=== PATIENT | female | born 1935 | race Caucasian/White ===

== ENCOUNTER 2024-04-02 23:13 | Observation (INO) ==
[2024-04-02] MEDS: methylPREDNISolone 125 MG/2 ML VIAL IV STA (23:30)
[2024-04-02] MEDS: EPINEPHrine ADULT AUTO-INJECT 0.3 MG SYR IM ONE (23:37)
[2024-04-02] MEDS: diphenhydrAMINE 50 MG/ML VIAL ONE (23:38)
[2024-04-02] MEDS: EPINEPHrine INJ 1 MG/ML AMP IM STA (23:38)
[2024-04-02] MEDS: RACEPINEPHRINE 2.25% NEBU SOLN 0.5 ML VIAL NEB STA (23:39)
[2024-04-02] MEDS: methylPREDNISolone 125 MG/2 ML VIAL ONE (23:39)
[2024-04-02] MEDS: FAMOTIDINE 20MG IV PUSH 20 MG/5 ML SYR IV STA (23:40)
[2024-04-02] MEDS: FAMOTIDINE 20MG/5ML IV PUSH IV ONE (23:40)
[2024-04-02 23:57] LABS: Basophils # (auto) 0.05 K/uL (0.00-0.20); Basophils % (auto) 0.7 %; Eosinophils % (auto) 2.7 %; Hemoglobin 13.8 g/dl (12.0-16.0); Immature Granulocytes # (auto) 0.02 K/uL (0.01-0.20); Immature Granulocytes % (auto) 0.3 %; Lymphocytes # (auto) 3.48 K/uL (1.20-3.40); Lymphocytes % (auto) 46.3 %; Mean Corpuscular Hgb Conc 32.9 g/dL (32.0-36.0); Mean Corpuscular Volume 91.3 fL (80.0-100.0); Mean Platelet Volume 9.3 fL (9.4-12.4); Monocytes # (auto) 0.51 K/uL (0.11-0.59); Monocytes % (auto) 6.8 %; Neutrophils # (auto) 3.26 K/uL (1.40-6.50); Neutrophils % (auto) 43.2 %; Platelet Count 312 K/uL (130-400); RDW Coefficient of Variation 13.1 % (11.5-14.5); RDW Standard Deviation 43.7 fL (36.4-46.3); White Blood Count 7.52 K/ul (4.8-10.8)
--- NOTE | 2024-04-02 23:58 | Emergency Department Note ---
History of Present Illness General Chief complaint: Allergic Reaction Stated complaint: ALLERGIC REACTION History of Present Illness This 88-year-old female presents the ER for acute allergic reaction. Patient states she took a sip out of a strawberry Glucerna drink and then shortly afterwards developed severe throat swelling facial swelling and chest tightness. She took some Benadryl and then called EMS. No history of anaphylaxis. No CRIS inhibitor. She is on an ARB. Home Medications Medication Instructions Recorded Confirmed Type Arnicare Arnica Ointment 1 applic topical DIRECTED PRN 04/03/24 04/03/24 History APPLY TO NECK NEEDED aspirin 81 mg tablet,delayed 81 mg PO DAILY 04/03/24 04/03/24 History release bisoprolol fumarate 5 mg tablet 5 mg PO QAM 04/03/24 04/03/24 History calcium carbonate 600 mg-vitamin 1 tab PO DAILY 04/03/24 04/03/24 History D3 10 mcg (400 unit) tablet (Calcium 600 + D(3)) conjugated estrogens 0.625 mg/gram 0.625 mg vaginal DIRECTED 04/03/24 04/03/24 History vaginal cream (Premarin) cranberry 500 mg capsule 500 mg PO 3XWK 04/03/24 04/03/24 History dicyclomine 10 mg capsule 10 mg PO BID PRN ABD CRAMPS 04/03/24 04/03/24 History esomeprazole magnesium 20 mg 20 mg PO QAM 04/03/24 04/03/24 History capsule,delayed release fenofibrate nanocrystallized 145 145 mg PO QAM 04/03/24 04/03/24 History mg tablet gabapentin 300 mg capsule 300 mg PO HS 04/03/24 04/03/24 History glipizide 5 mg tablet, extended 5 mg PO QAM 04/03/24 04/03/24 History release 24 hr isosorbide mononitrate 30 mg 30 mg PO QAM 04/03/24 04/03/24 History tablet,extended release 24 hr magnesium oxide 400 mg PO 3XWK 04/03/24 04/03/24 History uskaynljstht-kgqkaxid-vtyuni 1 tab PO 3XWK 04/03/24 04/03/24 History tablet (Multivitamin 50 Plus tablet) pravastatin 40 mg tablet 40 mg PO HS 04/03/24 04/03/24 History ranolazine 500 mg tablet,extended 500 mg PO BID 04/03/24 04/03/24 History release,12 hr rosuvastatin 20 mg tablet 20 mg PO HS 04/03/24 04/03/24 History telmisartan 40 mg tablet 20 mg PO QAM 04/03/24 04/03/24 History zinc gluconate 50 mg tablet 50 mg PO 3XWK 04/03/24 04/03/24 History Allergies Allergy/AdvReac Type Severity Reaction Status Date / Time No Known Allergies Allergy Verified 04/03/24 00:43 Past Med/Surg History Problem List (Updated 04/02/24 @ 23:58 by Luz Donovan PA-C) Anaphylaxis (Acute) Social History Smoking Status: Never smoker Preferred Language: Zambian Feels Safe at Home: Yes Review of Systems A total of 10 systems reviewed and were otherwise negative Physical Exam Vital Signs Vital Signs - 24 hr 04/02/24 23:20 04/02/24 23:25 04/02/24 23:26 Temperature 36.9 C Temperature Source Oral Pulse Rate 93 H Pulse Rate [Apical] Pulse Rate from SpO2 Sensor Respiratory Rate Respiratory Effort / Characteristics Non-Labored Spontaneous Short of Breath SOB on Exertion Blood Pressure [Right Arm] Blood Pressure Mean [Right Arm] Pulse Oximetry Oxygen Delivery Method Sepsis Recent Fever Within 48 Hours No Sepsis New/Unexplained Change in Mental Status No Sepsis Action Taken by Nursing No Action Required 04/02/24 23:30 04/02/24 23:49 04/03/24 00:00 Temperature Temperature Source Pulse Rate 93 H 107 H Pulse Rate [Apical] 92 H Pulse Rate from SpO2 Sensor 107 H Respiratory Rate 22 20 26 H Respiratory Effort / Characteristics Blood Pressure [Right Arm] 167/101 H Blood Pressure Mean [Right Arm] 123 Pulse Oximetry 96 100 Oxygen Delivery Method Room Air Nebulizer Sepsis Recent Fever Within 48 Hours Sepsis New/Unexplained Change in Mental Status Sepsis Action Taken by Nursing VITALS: Vitals are noted on the nurse's note and reviewed by myself. Vital signs stable. GENERAL: White female with a hoarse voice, in no acute distress, nondiaphoretic, well-developed well-nourished. SKIN: Facial erythematous and edematous concerning for allergic reaction, the skin was without rashes, erythema, edema, or bruising. There is no tenting of the skin. Capillary reflex less than 2 seconds. HEAD: Normocephalic atraumatic. EARS: External auditory canals clear EYES: Pupils equal round and reactive to light and accommodation. Conjunctivae without injection, sclerae without icterus. Extraocular movements intact. NOSE: Patent, no discharge. MOUTH: Mucous membranes moist. Posterior pharynx erythematous and edematous uvula erythematous and edematous concerning for angioedema. Airway patent. Tongue does not deviate. NECK: Supple without nuchal rigidity. No lymphadenopathy. No thyromegaly. Cervical spine is nontender. No JVD. HEART: Regular rate and rhythm LUNGS: Clear to auscultation bilaterally without wheezes, rales or rhonchi. No retractions or accessory muscle use. ABDOMEN: Positive bowel sounds x 4. Normal tympanic percussion. Soft, nontender, without masses or organomegaly. Richards sign negative. No guarding or rebound tenderness. No CVA tenderness MUSCULOSKELETAL: No muscle atrophy, erythema, or edema noted. NEURO: Patient was alert and oriented to person place and time. Normal sensation to light and sharp touch. No focal neurological deficits. Course Administered Medications Sodium Chloride (Nss) 1,000 mls @ 80 mls/hr IV .[id number] [facility] Stop: 05/03/24 00:44 Last Admin: 04/03/24 00:53 Dose: 80 mls/hr Documented By: ERVIN Discontinued Medications Cetirizine HCl (Cetirizine Hcl 10 Mg Tablet) 10 mg PO NOW ONE Stop: 04/02/24 23:25 Last Admin: 04/03/24 00:29 Dose: 10 mg Documented By: ERVIN Diphenhydramine HCl (Diphenhydramine 50 Mg/Ml Vial) Confirm Administered Dose 50 mg .ROUTE .STK-MED ONE Stop: 04/02/24 23:22 Last Admin: 04/02/24 23:38 Dose: Not Given Documented By: ERVIN Epinephrine (Racepinephrine 2.25% Nebu Soln 0.5 Ml Vial) 0.5 ml NEB NOW STA Stop: 04/02/24 23:32 Last Admin: 04/02/24 23:39 Dose: 0.5 ml Documented By: ERVIN Epinephrine HCl (Epinephrine Adult Auto-Inject 0.3 Mg Syr) Confirm Administered Dose 0.3 mg IM .STK-MED ONE Stop: 04/02/24 23:22 Last Admin: 04/02/24 23:37 Dose: 0.3 mg Documented By: ERVIN Epinephrine HCl (Epinephrine Inj 1 Mg/Ml Amp) 0.3 mg IM NOW STA Stop: 04/02/24 23:25 Last Admin: 04/02/24 23:38 Dose: Not Given Documented By: ERVIN Famotidine (Famotidine 20mg/5ml Iv Push) Confirm Administered Dose 20 mg IV .STK-MED ONE Stop: 04/02/24 23:22 Last Admin: 04/02/24 23:40 Dose: 20 mg Documented By: ERVIN Famotidine (Pepcid 20mg Iv Push) 20 mg in 5 mls @ 2.5 mls/min IV NOW STA Stop: 04/02/24 23:25 Last Admin: 04/02/24 23:40 Dose: Not Given Documented By: ERVIN Sodium Chloride (Nss) 250 mls @ 999 mls/hr IV .Q16M ONE Stop: 04/03/24 00:50 Last Infusion: 04/03/24 00:54 Dose: Infused Documented By: Admin: 04/03/24 00:20 Dose: 999 mls/hr Documented By: ERVIN Methylprednisolone (Methylprednisolone 125 Mg/2 Ml Vial) Confirm Administered Dose 125 mg .ROUTE .STK-MED ONE Stop: 04/02/24 23:22 Last Admin: 04/02/24 23:39 Dose: Not Given Documented By: ERVIN Methylprednisolone (Methylprednisolone 125 Mg/2 Ml Vial) 125 mg IV NOW STA Stop: 04/02/24 23:25 Last Admin: 04/02/24 23:30 Dose: 125 mg Documented By: ERVIN Critical Care Time Critical Care Time: Yes Total Critical Care Time: 35 I have personally spent 35 minutes of critical care time in the direct management of this patient. This includes bedside care, interpretation of diagnostic studies, and testing, discussion with consultants, patient, and family members, and other required patient management activities. This 35 minutes is in excess of all separately billable procedures. Medical Decision Making Medical Records Attestation: I reviewed the patient's medical records. Home Medications Current Medication List: was personally reviewed by me Laboratory Data Attestation: I reviewed the patient's lab results. 04/02/24 23:30 04/02/24 23:30 Lab Results 04/02/24 Range/Units 23:30 WBC 7.52 (4.8-10.8) K/ul RBC 4.60 (4.20-5.40) M/uL Hgb 13.8 (12.0-16.0) g/dl Hct 42.0 (37.0-47.0) % MCV 91.3 (80.0-100.0) fL MCH 30.0 (25.0-34.0) pg MCHC 32.9 (32.0-36.0) g/dL RDW Std Deviation 43.7 (36.4-46.3) fL RDW Coeff of Ines 13.1 (11.5-14.5) % Plt Count 312 (130-400) K/uL MPV 9.3 L (9.4-12.4) fL Immature Gran % (Auto) 0.3 % Neut % (Auto) 43.2 % Lymph % (Auto) 46.3 % Walton % (Auto) 6.8 % Eos % (Auto) 2.7 % Baso % (Auto) 0.7 % Neut # (Auto) 3.26 (1.40-6.50) K/uL Lymph # (Auto) 3.48 H (1.20-3.40) K/uL Walton # (Auto) 0.51 (0.11-0.59) K/uL Eos # (Auto) 0.20 (0.00-0.50) K/uL Baso # (Auto) 0.05 (0.00-0.20) K/uL Immature Gran # (Auto) 0.02 (0.01-0.20) K/uL Sodium 136 (136-145) mmol/L Potassium 3.8 (3.5-5.1) mmol/L Chloride 101 (98-107) mmol/L Carbon Dioxide 27 (21-32) mmol/L Anion Gap 8 (3-11) BUN 20 (6-23) mg/dl Creatinine 1.11 (0.6-1.2) mg/dl Est Cr Clr Drug Dosing 36.1 ml/min Est GFR ( Amer) 52.1 ml/min Est GFR (Non-Af Amer) 44.9 ml/min BUN/Creatinine Ratio 18.0 (10-20) Glucose 155 H (70-99(Fasting)) mg/dl Calcium 9.8 (8.6-10.3) mg/dl Total Bilirubin 0.4 (0.2-1.0) mg/dl AST 23 (13-39) U/L ALT 16 (7-52) U/L Alkaline Phosphatase 48 (34-104) U/L Troponin I High Sens 12.3 (0-14) pg/ml Total Protein 7.7 (6.0-8.3) gm/dl Albumin 4.3 (3.4-5.0) gm/dl Globulin 3.4 (2.5-4.0) gm/dl Albumin/Globulin Ratio 1.3 (0.9-2) Imaging Data Attestation: I personally reviewed and interpreted this imaging study as follows: MDM Narrative Prior records/ancillary studies reviewed. Triage Nursing notes reviewed. Additional history obtained from EMS. The patient's history was concerning for possible allergic reaction. Differential diagnosis: Etiologies such as allergic reaction, anaphylaxis, urticaria, Mobley-Zion syndrome, toxic epidermal necrolysis, erythema multiforme, cellulitis, as well as others were entertained. Physical examination: As above. ER treatment provided: Continuous cardiac monitoring An order was placed for continuous cardiac monitoring. The monitor shows a rate of 60-1 20 with a sinus rhythm. Patient took Benadryl just prior to arrival Pepcid 20 mg IV EpiPen IM V Solu-medrol 125mg IV Zyrtec p.o., racemic epi On reassessment the patient felt better. Diagnostic interpretation by me: EKG ordered for chest pain EKG: Normal sinus, left axis, right bundle branch block, no acute ST-T wave changes, rate of 91. Impression normal sinus rhythm with a right bundle branch block left axis deviation independently interpreted by myself Independently Interpreted by myself and revealed Negative troponin. Stable H&H Chest x-ray: With no acute consolidation, pneumothorax or free air per my independent interpretation It appears the patient had an an anaphylactic reaction. Patient's throat is still quite swollen despite being medicated as above. It was not nearly as bad as when she first came in. She was reassessed multiple times. Medicine was consulted and case discussed. She will be admitted to the medical service. By the evaluation outlined above emergent etiologies such as recurring anaphylaxis, anaphylatic shock, Mobley-Zion syndrome, toxic epidermal necrolysis, erythema multiforme, infectious etiologies, as well as others were deemed relatively unlikely. The pt informed about the findings as listed above. All questions were answered and pleased with the treatment. The chart was completed utilizing [employer], Speech voice recognition software. Grammatical errors, random word insertions, pronoun errors, and incomplete sentences are an occassional consequence of this system due to software limitations, ambient noise, and hardware issues. Any formal questions or concerns about the content, text, or information contained within the body of this dictation should be directly addressed to the physician budget assistant for clarification. Impression & Plan Anaphylaxis Discharge Plan Visit Data Chief Complaint: Allergic Reaction Stated Complaint: ALLERGIC REACTION ED Provider: Marsha Bray ED Midlevel Provider: Luz Donovan Discharge Problem: Anaphylaxis Patient Disposition: Admitted As Inpatient Condition: Fair Forms Stand Alone Forms: [facility] Prescriptions Prescriptions: No Action Arnicare Arnica Ointment 1 applic topical DIRECTED PRN (Reason: APPLY TO NECK NEEDED) pravastatin 40 mg tablet 40 mg PO HS Rx Instructions: WHEN FINISHED WITH THIS BOTTLE, START ROSUVASTATIN isosorbide mononitrate 30 mg tablet extended release 24 hr 30 mg PO QAM glipizide 5 mg tablet extended release 24hr 5 mg PO QAM aspirin 81 mg Tablet,Delayed Release (Dr/Ec) 81 mg PO DAILY bisoprolol fumarate 5 mg tablet 5 mg PO QAM telmisartan 40 mg tablet 20 mg PO QAM Rx Instructions: JUST CHANGED DOSE RECENTLY Premarin 0.625 mg/gram cream 0.625 mg vaginal DIRECTED Rx Instructions: ON EXT MED HX, NOT ON [facility] MED LIST gabapentin 300 mg capsule 300 mg PO HS zinc gluconate 50 mg Tablet 50 mg PO 3XWK Rx Instructions: MON, WED, FRI dicyclomine 10 mg capsule 10 mg PO BID PRN (Reason: ABD CRAMPS) cranberry 500 mg Capsule 500 mg PO 3XWK Rx Instructions: MON, WED, FRI administer with meals esomeprazole magnesium 20 mg capsule,delayed release(DR/EC) 20 mg PO QAM Multivitamin 50 Plus Tablet 1 tab PO 3XWK Rx Instructions: MON, WED, FRI rosuvastatin 20 mg tablet 20 mg PO HS Rx Instructions: WILL START SOON FINISHED WITH PRAVASTATIN ranolazine 500 mg tablet extended release 12 hr 500 mg PO BID Rx Instructions: ON EXT MED HX, NOT ON [facility] MED LIST fenofibrate nanocrystallized 145 mg tablet 145 mg PO QAM Rx Instructions: ON EXT MED HX, NOT ON [facility] MED LIST calcium carbonate-vitamin D3 [Calcium 600 + D(3)] 600 mg-10 mcg (400 unit) Tablet 1 tab PO DAILY magnesium oxide 400 mg magnesium Tablet 400 mg PO 3XWK Rx Instructions: MON, WED, FRI Referrals Referrals: Licha Nunez [Primary Care Provider] - Discharge Problem: Anaphylaxis Qualifiers: Encounter type: initial encounter Qualified Code(s): T78.2XXA - Anaphylactic shock, unspecified, initial encounter
[2024-04-03 00:11] LABS: Albumin Globulin Ratio 1.3 (0.9-2); Albumin Level 4.3 gm/dl (3.4-5.0); Bilirubin,Total 0.4 mg/dl (0.2-1.0); Calcium 9.8 mg/dl (8.6-10.3); Creatinine Clr Calc Pharmacy 36.1 ml/min; Est GFR (African American) 52.1 ml/min; Est GFR (Non-African American) 44.9 ml/min; Globulin 3.4 gm/dl (2.5-4.0); Potassium 3.8 mmol/L (3.5-5.1); Total Protein 7.7 gm/dl (6.0-8.3)
[2024-04-03 00:17] LABS: Troponin I High Sensitivity 12.3 pg/ml (0-14)
[2024-04-03] MEDS: SODIUM CHLORIDE 0.9% 250 ML IV ONE (00:20)
[2024-04-03] MEDS: CETIRIZINE HCL 10 MG TABLET PO ONE (00:29)
[2024-04-03] MEDS: SODIUM CHLORIDE 0.9% 1,000 ML IV SCH ×2 (00:53→02:13)
[2024-04-03] MEDS: diphenhydrAMINE 50 MG/ML VIAL IV STA (01:30)
--- NOTE | 2024-04-03 01:32 | History & Physical Report ---
Date of Service April 03, 2024 Assessment & Plan (1) Anaphylaxis: Plan: 88-year-old female with past medical history significant for hypertension, hyperlipidemia, nonobstructive CAD, diabetes, history of breast cancers s/p surgery and radiation, presents with allergic reaction with angioedema/anaphylaxis. Symptoms started 10 to 15 minutes after drinking strawberry Glucerna drink which she drank first time today. Initially started with itching of the eyes then's eyes were swollen and face was swollen and throat was swollen and was difficulty to talk and difficult to swallow and had some chest tightness and shortness of breath. She took Benadryl and came to the ER. She says she noticed some hives on the right upper extremity. In the ER patient was given racemic epinephrine and epinephrine, IV Benadryl, IV Solu- Medrol and IV Pepcid. Symptoms improved. But still has significant swelling in the throat. Currently no shortness of breath or chest pain. Hemodynamics are okay. Patient states this is first time she had a severe allergic reaction. Currently no headache or dizziness. Vision is okay. No runny nose. No cough. No fevers. No chest pain or shortness of breath currently. No nausea. No abdominal pain. Normal bowel and bladder movements. Ambulates okay. Resting comfortably. Anaphylaxis/angioedema After drinking strawberry Glucerna drink Patient is on telmisartan for long time and recently dose was reduced Will hold telmisartan for now Received epinephrine, Solu-Medrol, Pepcid, Benadryl and Zyrtec Will continue with IV Solu-Medrol, IV Pepcid, Zyrtec and IV Benadryl as needed Close monitor in telemetry Full liquid diet for now, IV fluids Consult allergy immunology in a.m. for further recommendations History of nonobstructive CAD History of angina Continue aspirin, beta-saman, Imdur, Ranolazine and statin Diabetes Hold glipizide Sliding scale Will monitor Hypertension Continue bisoprolol and Imdur Will hold telmisartan Will monitor Hyperlipidemia Fenofibrate and statin Will monitor History of breast cancer S/p surgery and radiation Seems completed 10 years of tamoxifen. DVT prophylaxis SCDs for now Disposition Telemetry Full code. History of Present Illness Chief Complaint: Allergic reaction Primary Care Provider: Licha Nunez 88-year-old female with past medical history significant for hypertension, hyperlipidemia, nonobstructive CAD, diabetes, history of breast cancers s/p surgery and radiation, presents with allergic reaction with angioedema/anaphylaxis. Symptoms started 10 to 15 minutes after drinking strawberry Glucerna drink which she drank first time today. Initially started with itching of the eyes then's eyes were swollen and face was swollen and throat was swollen and was difficulty to talk and difficult to swallow and had some chest tightness and shortness of breath. She took Benadryl and came to the ER. She says she noticed some hives on the right upper extremity. In the ER patient was given racemic epinephrine and epinephrine, IV Benadryl, IV Solu- Medrol and IV Pepcid. Symptoms improved. But still has significant swelling in the throat. Currently no shortness of breath or chest pain. Hemodynamics are okay. Patient states this is first time she had a severe allergic reaction. Currently no headache or dizziness. Vision is okay. No runny nose. No cough. No fevers. No chest pain or shortness of breath currently. No nausea. No abdominal pain. Normal bowel and bladder movements. Ambulates okay. Resting comfortably. Past medical history. As mentioned above Past surgical history. Appendectomy. Tonsillectomy. Cholecystectomy. Hysterectomy. Right hip replacement. Social history. Lives alone in apartment. No smoking. No alcohol use. Family history. Father had pacemaker. Colon cancer. Mother had glaucoma. Macular degeneration. Breast cancer. Allergies Allergy/AdvReac Type Severity Reaction Status Date / Time No Known Allergies Allergy Verified 04/03/24 00:43 Home Medications Medication Instructions Recorded Confirmed Type Arnicare Arnica Ointment 1 applic topical DIRECTED PRN 04/03/24 04/03/24 History APPLY TO NECK NEEDED aspirin 81 mg tablet,delayed 81 mg PO DAILY 04/03/24 04/03/24 History release bisoprolol fumarate 5 mg tablet 5 mg PO QAM 04/03/24 04/03/24 History calcium carbonate 600 mg-vitamin 1 tab PO DAILY 04/03/24 04/03/24 History D3 10 mcg (400 unit) tablet (Calcium 600 + D(3)) conjugated estrogens 0.625 mg/gram 0.625 mg vaginal DIRECTED 04/03/24 04/03/24 History vaginal cream (Premarin) cranberry 500 mg capsule 500 mg PO 3XWK 04/03/24 04/03/24 History dicyclomine 10 mg capsule 10 mg PO BID PRN ABD CRAMPS 04/03/24 04/03/24 History esomeprazole magnesium 20 mg 20 mg PO QAM 04/03/24 04/03/24 History capsule,delayed release fenofibrate nanocrystallized 145 145 mg PO QAM 04/03/24 04/03/24 History mg tablet gabapentin 300 mg capsule 300 mg PO HS 04/03/24 04/03/24 History glipizide 5 mg tablet, extended 5 mg PO QAM 04/03/24 04/03/24 History release 24 hr isosorbide mononitrate 30 mg 30 mg PO QAM 04/03/24 04/03/24 History tablet,extended release 24 hr magnesium oxide 400 mg PO 3XWK 04/03/24 04/03/24 History qqrcroflnzjq-blhzfmyg-ohgzfy 1 tab PO 3XWK 04/03/24 04/03/24 History tablet (Multivitamin 50 Plus tablet) ranolazine 500 mg tablet,extended 500 mg PO BID 04/03/24 04/03/24 History release,12 hr rosuvastatin 20 mg tablet 20 mg PO HS 04/03/24 04/03/24 History telmisartan 40 mg tablet 20 mg PO QAM 04/03/24 04/03/24 History zinc gluconate 50 mg tablet 50 mg PO 3XWK 04/03/24 04/03/24 History Past Med/Surg History Problem List (Updated 04/02/24 @ 23:58 by Luz Donovan PA-C) Anaphylaxis (Acute) Social History Smoking Status: Never smoker Hx Alcohol Use: No Hx Substance Use: No Preferred Language: Armenian 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 Lungs- clear to auscultation no wheezing or crackles Heart- regular rhythm; tachycardia no murmur, no gallop. Abdomen- normal bowel sounds, soft, nontender, no distension. Extremities- mild pretibial edema present, no erythema seen. Neuro- alert, oriented PERRL, no facial palsy; no dysarthria; moves extremities. Results & Data Results & Data Vital Signs (Past 12 Hours) Vital Signs Temp Pulse Pulse Resp BP Pulse Ox O2 Del Method 04/03/24 00:00 107 H 26 H 04/02/24 23:49 93 H 20 100 Nebulizer 04/02/24 23:30 92 H 22 167/101 H 96 Room Air 04/02/24 23:26 93 H 04/02/24 23:20 36.9 C Diagnostic Findings Laboratory Results WBC 7.52 K/ul (4.8-10.8) 04/02/24 23:30 RBC 4.60 M/uL (4.20-5.40) 04/02/24 23:30 Hgb 13.8 g/dl (12.0-16.0) 04/02/24 23:30 Hct 42.0 % (37.0-47.0) 04/02/24 23:30 MCV 91.3 fL (80.0-100.0) 04/02/24 23:30 MCH 30.0 pg (25.0-34.0) 04/02/24 23:30 MCHC 32.9 g/dL (32.0-36.0) 04/02/24 23:30 RDW Std Deviation 43.7 fL (36.4-46.3) 04/02/24 23:30 RDW Coeff of Ines 13.1 % (11.5-14.5) 04/02/24 23:30 Plt Count 312 K/uL (130-400) 04/02/24 23:30 MPV 9.3 fL (9.4-12.4) L 04/02/24 23:30 Immature Gran % (Auto) 0.3 % 04/02/24 23:30 Neut % (Auto) 43.2 % 04/02/24 23:30 Lymph % (Auto) 46.3 % 04/02/24 23:30 [place] % (Auto) 6.8 % 07/21/24 23:30 Eos % (Auto) 2.7 % 04/02/24 23:30 Baso % (Auto) 0.7 % 04/02/24 23:30 Neut # (Auto) 3.26 K/uL (1.40-6.50) 04/02/24 23:30 Lymph # (Auto) 3.48 K/uL (1.20-3.40) H 04/02/24 23:30 [place] # (Auto) 0.51 K/uL (0.11-0.59) 04/02/24 23:30 Eos # (Auto) 0.20 K/uL (0.00-0.50) 04/02/24 23:30 Baso # (Auto) 0.05 K/uL (0.00-0.20) 04/02/24 23:30 Immature Gran # (Auto) 0.02 K/uL (0.01-0.20) 04/02/24 23:30 Sodium 136 mmol/L (136-145) 04/02/24 23:30 Potassium 3.8 mmol/L (3.5-5.1) 04/02/24 23:30 Chloride 101 mmol/L (98-107) 04/02/24 23:30 Carbon Dioxide 27 mmol/L (21-32) 04/02/24 23:30 Anion Gap 8 (3-11) 04/02/24 23:30 BUN 20 mg/dl (6-23) 04/02/24 23:30 Creatinine 1.11 mg/dl (0.6-1.2) 04/02/24 23:30 Est Cr Clr Drug Dosing 36.1 ml/min 04/02/24 23:30 Est GFR ( Amer) 52.1 ml/min 04/02/24 23:30 Est GFR (Non-Af Amer) 44.9 ml/min 04/02/24 23:30 BUN/Creatinine Ratio 18.0 (10-20) 04/02/24 23:30 Glucose 155 mg/dl (70-99(Fasting)) H 04/02/24 23:30 Calcium 9.8 mg/dl (8.6-10.3) 04/02/24 23:30 Total Bilirubin 0.4 mg/dl (0.2-1.0) 04/02/24 23:30 AST 23 U/L (13-39) 04/02/24 23:30 ALT 16 U/L (7-52) 04/02/24 23:30 Alkaline Phosphatase 48 U/L (34-104) 04/02/24 23:30 Troponin I High Sens 12.3 pg/ml (0-14) 04/02/24 23:30 Total Protein 7.7 gm/dl (6.0-8.3) 04/02/24 23:30 Albumin 4.3 gm/dl (3.4-5.0) 04/02/24 23:30 Globulin 3.4 gm/dl (2.5-4.0) 04/02/24 23:30 Albumin/Globulin Ratio 1.3 (0.9-2) 04/02/24 23:30 ECG Additional Comments: ECG. Normal sinus rhythm rate of 91. Left axis deviation. Right bundle branch block. Left ventricle hypertrophy. QTc 492. Code Status & VTE Plan VTE Prophylaxis Plan VTE Prophylaxis will be ordered: Yes (1) Anaphylaxis Encounter type: initial encounter Qualified Code(s): T78.2XXA - Anaphylactic shock, unspecified, initial encounter
[2024-04-03] MEDS ORDERED: NITROGLYCERIN SL 0.4 MG/TAB TAB SL PRN (02:10)
[2024-04-03] MEDS ORDERED: GLUCOSE 10 TAB/TUBE PO PRN (02:10)
[2024-04-03] MEDS ORDERED: GLUCAGON FOR INJ 1 MG VIAL SQ PRN (02:10)
[2024-04-03] MEDS ORDERED: DEXTROSE 50% 50 ML SYRINGE IV PRN (02:10)
[2024-04-03] MEDS ORDERED: CARBOHYDRATES FOR HYPOGLYCEMIA PO PRN (02:10)
[2024-04-03] MEDS ORDERED: GLUCOSE 40% GEL 15 GM TUBE PO PRN (02:10)
[2024-04-03] MEDS ORDERED: diphenhydrAMINE 50 MG/ML VIAL IV PRN (02:10)
[2024-04-03 06:20] LABS: Hematocrit (blood only) 36.8 % (37.0-47.0); Hemoglobin 12.2 g/dl (12.0-16.0); Mean Corpuscular Hemoglobin 29.9 pg (25.0-34.0); Mean Corpuscular Hgb Conc 33.2 g/dL (32.0-36.0); Mean Corpuscular Volume 90.2 fL (80.0-100.0); Mean Platelet Volume 9.4 fL (9.4-12.4); Platelet Count 288 K/uL (130-400); RDW Coefficient of Variation 12.9 % (11.5-14.5); Red Blood Count 4.08 M/uL (4.20-5.40); White Blood Count 8.41 K/ul (4.8-10.8)
[2024-04-03 06:36] LABS: BUN Creatinine Ratio 18.8 (10-20); Calcium 9.3 mg/dl (8.6-10.3); Creatinine Clr Calc Pharmacy 38.6 ml/min; Est GFR (African American) 58.4 ml/min; Est GFR (Non-African American) 50.4 ml/min; Magnesium 1.8 mg/dl (1.7-2.4); Potassium 4.1 mmol/L (3.5-5.1)
--- NOTE | 2024-04-03 06:46 | XRay Report ---
XR chest 1V portable CLINICAL HISTORY: Chest pain. Allergic reaction. COMPARISON STUDY: No previous studies for comparison. FINDINGS: The patient is mildly rotated. No pneumothorax or pleural effusion is present. There is no consolidation. There is moderate cardiomegaly. No airspace opacities are identified. IMPRESSION: No acute cardiopulmonary findings. Cardiomegaly. ACT 112: Negative or not required by law. Electronically signed by: Edwin Sloan M.D. 04/03/2024 6:45 AM
[2024-04-03 07:06] LABS: Basophils # (auto) 0.04 K/uL (0.00-0.20); Basophils % (auto) 0.5 %; Eosinophils # (auto) 0.01 K/uL (0.00-0.50); Eosinophils % (auto) 0.1 %; Immature Granulocytes # (auto) 0.02 K/uL (0.01-0.20); Immature Granulocytes % (auto) 0.2 %; Lymphocytes # (auto) 1.16 K/uL (1.20-3.40); Lymphocytes % (auto) 13.8 %; Monocytes # (auto) 0.08 K/uL (0.11-0.59); Neutrophils % (auto) 84.4 %
[2024-04-03 07:49] LABS: Estimated Average Glucose 131 mg/dl; Hemoglobin A1C 6.2 % (4.5-5.6)
[2024-04-03] MEDS: INSULIN ASPART PER UNIT CHARGE SC SCH (08:49)
[2024-04-03] MEDS ORDERED: methylPREDNISolone 125 MG/2 ML VIAL IV SCH (09:00)
[2024-04-03] MEDS: ISOSORBIDE MONO EXTENDED REL 30 MG TABCR PO SCH (09:43)
[2024-04-03] MEDS: RANOLAZINE 500 MG ER TAB PO SCH (09:43)
[2024-04-03] MEDS: PANTOprazole 40 MG TAB PO SCH (09:43)
[2024-04-03] MEDS: FENOFIBRATE NANOCRYSTALLIZED 145 MG TABLET PO SCH (09:43)
[2024-04-03] MEDS: ASPIRIN 81 MG ECTAB PO SCH (09:44)
[2024-04-03] MEDS: MAGNESIUM OXIDE 400 MG TAB PO SCH (09:44)
[2024-04-03] MEDS: methylPREDNISolone 60 MG in SYRINGE 0 ML IV SCH (09:44)
[2024-04-03] MEDS: BISOPROLOL FUMARATE 5 MG TAB PO SCH (09:44)
[2024-04-03] MEDS: FAMOTIDINE 20MG IV PUSH 20 MG/5 ML SYR IV SCH (10:29)
--- NOTE | 2024-04-03 13:42 | Hospitalist Progress Note ---
Date of Service April 03, 2024 Assessment & Plan (1) Anaphylaxis: Plan: 88-year-old female with past medical history significant for hypertension, hyperlipidemia, nonobstructive CAD, diabetes, history of breast cancers s/p surgery and radiation, presents with allergic reaction with angioedema/anaphylaxis. Symptoms started 10 to 15 minutes after drinking strawberry Glucerna drink which she drank first time today. Initially started with itching of the eyes then's eyes were swollen and face was swollen and throat was swollen and was difficulty to talk and difficult to swallow and had some chest tightness and shortness of breath. She took Benadryl and came to the ER. She says she noticed some hives on the right upper extremity. In the ER patient was given racemic epinephrine and epinephrine, IV Benadryl, IV Solu- Medrol and IV Pepcid. Symptoms improved. But still has significant swelling in the throat. Currently no shortness of breath or chest pain. Hemodynamics are okay. Patient states this is first time she had a severe allergic reaction. Currently no headache or dizziness. Vision is okay. No runny nose. No cough. No fevers. No chest pain or shortness of breath currently. No nausea. No abdominal pain. Normal bowel and bladder movements. Ambulates okay. Resting comfortably. Anaphylaxis/angioedema After drinking strawberry Glucerna drink Patient is on telmisartan for long time and recently dose was reduced Will hold telmisartan for now Received epinephrine, Solu-Medrol, Pepcid, Benadryl and Zyrtec Will continue with IV Solu-Medrol, IV Pepcid, Zyrtec and IV Benadryl as needed Close monitor in telemetry Likely secondary to ARB Doubt it is caused by strawberry Glucerna drink Will stop ARB on discharge Will need allergy and immunology evaluation History of nonobstructive CAD History of angina Continue aspirin, beta-saman, Imdur, Ranolazine and statin No acute cardiac symptoms Diabetes Hold glipizide Sliding scale Will monitor Hypertension Continue bisoprolol and Imdur Will hold telmisartan Will not restart telmisartan Hyperlipidemia Fenofibrate and statin Will monitor History of breast cancer S/p surgery and radiation Seems completed 10 years of tamoxifen. DVT prophylaxis SCDs for now Disposition Telemetry Full code. Likely discharge this afternoon Admission and Anticipated Discharge Date Admission Date: April 03, 2024 Subjective 04/03/2024 The patient was seen and examined in telemetry unit She was admitted with angioedema secondary to drinking strawberry Glucerna for the first time Denies any significant symptoms now Likely be discharged in the afternoon Review of Systems Review of Systems: All systems reviewed and are unremarkable except as noted below Physical Exam Physical Exam: Lying in bed without any acute distress Constitutional: well developed, well nourished and + obese; not ill appearing Eyes: PERRL, conjunctivae normal, anicteric sclerae ENMT: external ear and nose normal, oropharynx normal Neck: trachea midline, no thyromegaly Respiratory: no respiratory distress Auscultation: lungs clear to auscultation bilaterally Cardiovascular: Rate/Rhythm: regular rate, regular rhythm and + bradycardic Heart Sounds: normal S1 and normal S2; no murmur Gastrointestinal (Abdomen): Inspection/Auscultation: normal bowel sounds; abdomen not distended Percussion/Palpation: abdomen soft; abdomen nontender Musculoskeletal: No acute arthritis involving any of the joints Neurologic: normal touch/pain/proprioception and moves all extremities; no focal motor deficits Psychiatric: A+Ox3, euthymic affect Lymphatic: no cervical or axillary lymphadenopathy Results & Data Results & Data Vital Signs (Past 12 Hours) Vital Signs Temp Pulse Pulse Resp BP Pulse Ox O2 Del Method 04/03/24 11:43 36.8 C 58 L 18 141/96 H 98 Room Air 04/03/24 07:14 102 H 04/03/24 07:14 36.5 C 99 H 18 140/69 97 Room Air 04/03/24 03:49 105 H 04/03/24 02:10 36.4 C L 110 H 18 163/81 H 98 Room Air 04/03/24 01:39 106 H 21 96 Room Air Laboratory Results Short CBC 04/02/24 04/03/24 Range/Units 23:30 05:28 WBC 7.52 8.41 (4.8-10.8) K/ul Hgb 13.8 12.2 (12.0-16.0) g/dl Hct 42.0 36.8 L (37.0-47.0) % Plt Count 312 288 (130-400) K/uL BMP 04/02/24 04/03/24 23:30 05:28 Sodium 136 138 Potassium 3.8 4.1 Chloride 101 104 Carbon Dioxide 27 25 BUN 20 19 Creatinine 1.11 1.01 Glucose 155 H 219 H Calcium 9.8 9.3 Liver Function 04/02/24 Range/Units 23:30 Total Bilirubin 0.4 (0.2-1.0) mg/dl AST 23 (13-39) U/L ALT 16 (7-52) U/L Alkaline Phosphatase 48 (34-104) U/L Albumin 4.3 (3.4-5.0) gm/dl Medications Administered Current Inpatient Medications Aspirin (Aspirin 81 Mg Ectab) 81 mg PO DAILY [facility] Stop: 05/03/24 08:59 Last Admin: 04/03/24 09:44 Dose: 81 mg Bisoprolol Fumarate (Bisoprolol Fumarate 5 Mg Tab) 5 mg PO QAM [facility] Stop: 05/03/24 08:59 Last Admin: 04/03/24 09:44 Dose: 5 mg Cetirizine HCl (Cetirizine Hcl 10 Mg Tablet) 10 mg PO [facility] Stop: 05/03/24 20:59 Dextrose (Dextrose 50% 50 Ml Syringe) 25 - 50 ml IV UD PRN; Protocol PRN Reason: Hypoglycemia Protocol Stop: 05/03/24 02:09 Diphenhydramine HCl (Diphenhydramine 50 Mg/Ml Vial) 25 mg IV Q6H PRN PRN Reason: Allergic Reaction Stop: 05/03/24 02:09 Fenofibrate (Fenofibrate Nanocrystallized 145 Mg Tablet) 145 mg PO QAM [facility] Stop: 05/03/24 08:59 Last Admin: 04/03/24 09:43 Dose: 145 mg Gabapentin (Gabapentin 300 Mg Cap) 300 mg PO [facility] Stop: 05/03/24 20:59 Glucagon (Glucagon For Inj 1 Mg Vial) 1 mg SQ UD PRN; Protocol PRN Reason: Hypoglycemia Protocol Stop: 05/03/24 02:09 Glucose (Glucose 40% Gel 15 Gm Tube) 15 - 30 gm PO UD PRN; Protocol PRN Reason: Hypoglycemia Protocol Stop: 05/03/24 02:09 Glucose (Glucose 10 Tab/Tube) 4 - 8 tab PO UD PRN; Protocol PRN Reason: Hypoglycemia Treatment Stop: 05/03/24 02:09 Sodium Chloride (Nss) 1,000 mls @ 80 mls/hr IV .[id number] [facility] Stop: 04/03/24 14:39 Last Admin: 04/03/24 02:13 Dose: 80 mls/hr Famotidine (Pepcid 20mg Iv Push) 20 mg in 5 mls @ 2.5 mls/min IV Q12H [facility] Stop: 05/03/24 08:59 Last Admin: 04/03/24 10:29 Dose: 2.5 mls/min Methylprednisolone 60 mg/ (Syringe) 0.96 mls @ 1.5 mls/min IV Q24H [facility] Stop: 05/03/24 08:59 Last Admin: 04/03/24 09:44 Dose: 1.5 mls/min Insulin Aspart (Insulin Aspart Per Unit Charge) 0 units SC ACHS [facility] Stop: 05/03/24 07:29 Last Admin: 04/03/24 12:18 Dose: 6 units Isosorbide Mononitrate (Isosorbide [place] Extended Rel 30 Mg Tabcr) 30 mg PO QAM [facility] Stop: 05/03/24 08:59 Last Admin: 04/03/24 09:43 Dose: 30 mg Magnesium Oxide (Magnesium Oxide 400 Mg Tab) 400 mg PO MoWeFr@0900 [facility] Stop: 05/03/24 08:59 Last Admin: 04/03/24 09:44 Dose: 400 mg Miscellaneous (Carbohydrates For Hypoglycemia ) 15 - 30 gm PO UD PRN PRN Reason: Hypoglycemia Protocol Stop: 05/03/24 02:09 Nitroglycerin (Nitroglycerin Sl 0.4 Mg/Tab Tab) 0.4 mg SL Q5M PRN PRN Reason: Chest Pain Stop: 05/03/24 02:09 Pantoprazole Sodium (Pantoprazole 40 Mg Tab) 40 mg PO QAM [facility] Stop: 05/03/24 08:59 Last Admin: 04/03/24 09:43 Dose: 40 mg Ranolazine (Ranolazine 500 Mg Er Tab) 500 mg PO BID [facility] Stop: 05/03/24 08:59 Last Admin: 04/03/24 09:43 Dose: 500 mg Rosuvastatin Calcium (Rosuvastatin Calcium 20 Mg Tab) 20 mg PO HS [facility] Stop: 05/03/24 20:59 (1) Anaphylaxis Encounter type: initial encounter Qualified Code(s): T78.2XXA - Anaphylactic shock, unspecified, initial encounter
--- NOTE | 2024-04-03 17:29 | Allergy & Immunology Consult ---
Date of Consultation April 03, 2024 Assessment & Plan (1) Angioedema: The underlying cause of the patient's recent episode of facial angioedema (possibly associated with some degree of urticaria) is not entirely clear, although the patient does not have a known history of food allergies (of note, the predominant food allergens found in Glucerna supplements are milk and soy which are both food groups that the patient is otherwise able to tolerate without issue). To better objectively assess whether the patient could be experiencing an underlying component of histamine and/or bradykinin mediated angioedema given this unclear clinical picture, additional lab work can be obtained at this time. To screen for histamine mediated causes of angioedema a baseline tryptase level can be obtained (which can be subsequently compared to an "event related tryptase level" obtained within 2 to 3 hours of any future episodes concerning for an allergic reaction). To screen for bradykinin mediated causes of angioedema a C4 level, C1 esterase inhibitor level, C1 esterase inhibitor function, and C1q level can be obtained. Furthermore, as the patient reviews that there may have been some freshly cut hager kept in her home (possibly contributing to her symptoms), it is also reasonable to obtain a [employer] aeroallergen serum IgE panel (in case of environmental exposures contributing to the patient's symptoms). For now, in addition to more regularly moisturizing the skin to prevent a possible component of dry skin dermatitis/skin sensitivity (e.g., with Vaseline, etc.), the patient was encouraged to take 180mg twice daily fexofenadine for management of a possible underlying component of chronic spontaneous urticaria/angioedema. The timing and character of the patient's symptoms do not raise concern for IgE mediated drug allergies and/or bradykinin mediated drug-induced angioedema (as can occur with CRIS-inhibitor medications; of note, ARB medications do not inhibit the degradation of bradykinin so the patient's telmisartan would be an unlikely explanation for the patient's symptoms). 1) initiate 180mg BID fexofenadine (to be continued at least until the time of Allergy/Immunology follow-up in about 2-3 weeks) -Allergy/Immunology clinic to arrange follow-up accordingly 2) obtain baseline tryptase level (moving forward, can be compared to an "event related tryptase level" obtained within 2 to 3 hours of any future episodes concerning for an allergic reaction) 3) obtain C4 level, C1 esterase inhibitor level, C1 esterase inhibitor function, and C1q level 4) obtain [employer] aeroallergen serum IgE panel Deshaun Castro MD Allergy & Immunology [facility] [address] | [address] [place] [address] P: | F: History of Present Illness Attending Physician: Gustavo Rodrigues MD History of Present Illness The patient is an 88-year-old woman with multiple chronic comorbidities including T2DM who is currently hospitalized for management of idiopathic angioedema. The patient reports that she was continuing to be in her usual state of health until yesterday evening when she developed swelling/redness of the eyelids and may be some itchiness/hives of the skin. More specifically, the patient reviews that she did not have any recent fevers/illnesses but that she did get some freshly cut hager for her house which she was initially tolerating exposure to for the vast majority of the day. However, yesterday night the patient ended up having to take a Glucerna supplement after she found that her blood sugar level was getting low since she had not eaten for an extended period of time. She reviews that this was the first time she had ever ingested a Glucerna supplement, but that within about 10-15 minutes of ingestion she developed redness around the eyes, mouth swelling, difficulty swallowing, as well as possible itchiness/hives of the skin (maybe on her arms or so). She did not have any associated wheezing/shortness of breath, nausea/vomiting, and/or paleness/lightheadedness associated with her predominant skin symptoms. She denies exposures to any new medications leading up to the onset of symptoms, though she also reviews that she is status post significant right facial surgery for management of skin cancer (and that region of her face may be more sensitive as compared to the rest of her skin). She denies having a family history of angioedema/"swelling without obvious cause". She also denies having a history of food allergies, and is able to tolerate peanut, tree nuts, milk, egg, wheat, soy, seafood, and sesame without issue. Of note, milk and soy are the predominant allergens identified in Glucerna supplements. Allergies Allergy/AdvReac Type Severity Reaction Status Date / Time No Known Allergies Allergy Verified 04/03/24 00:43 Home Medications Medication Instructions Recorded Confirmed Type Edmond Nick Ointment 1 applic topical DIRECTED PRN 04/03/24 04/03/24 History APPLY TO NECK NEEDED aspirin 81 mg tablet,delayed 81 mg PO DAILY 04/03/24 04/03/24 History release bisoprolol fumarate 5 mg tablet 5 mg PO QAM 04/03/24 04/03/24 History calcium carbonate 600 mg-vitamin 1 tab PO DAILY 04/03/24 04/03/24 History D3 10 mcg (400 unit) tablet (Calcium 600 + D(3)) conjugated estrogens 0.625 mg/gram 0.625 mg vaginal DIRECTED 04/03/24 04/03/24 History vaginal cream (Premarin) cranberry 500 mg capsule 500 mg PO 3XWK 04/03/24 04/03/24 History dicyclomine 10 mg capsule 10 mg PO BID PRN ABD CRAMPS 04/03/24 04/03/24 History esomeprazole magnesium 20 mg 20 mg PO QAM 04/03/24 04/03/24 History capsule,delayed release fenofibrate nanocrystallized 145 145 mg PO QAM 04/03/24 04/03/24 History mg tablet gabapentin 300 mg capsule 300 mg PO HS 04/03/24 04/03/24 History glipizide 5 mg tablet, extended 5 mg PO QAM 04/03/24 04/03/24 History release 24 hr isosorbide mononitrate 30 mg 30 mg PO QAM 04/03/24 04/03/24 History tablet,extended release 24 hr magnesium oxide 400 mg PO 3XWK 04/03/24 04/03/24 History lcfadebtoajf-[id number]-[id number] 1 tab PO 3XWK 04/03/24 04/03/24 History tablet (Multivitamin 50 Plus tablet) ranolazine 500 mg tablet,extended 500 mg PO BID 04/03/24 04/03/24 History release,12 hr rosuvastatin 20 mg tablet 20 mg PO HS 04/03/24 04/03/24 History telmisartan 40 mg tablet 20 mg PO QAM 04/03/24 04/03/24 History zinc gluconate 50 mg tablet 50 mg PO 3XWK 04/03/24 04/03/24 History Patient History Social History Smoking Status: Never smoker Hx Alcohol Use: No Hx Substance Use: No Preferred Language: Ukrainian Communication Ability: Effective Copy Clerk Required: No Beliefs That Will Affect Care: None Current Living Situation: Alone Feels Safe at Home: Yes Safety Concerns: Feels Safe At This Time Assistive Devices: Walker Review of Systems Review of Systems: I reviewed the history of the following medical systems: constitutional, eyes, ears/nose/mouth/throat, respiratory, cardiovascular, gastrointestinal, genitourinary, musculoskeletal, integumentary, neurologic, psychiatric, endocrinologic, hematologic/lymphatic, and allergic/immunologic. Positive and/or significant negative findings are as above, otherwise, ROS was normal. Physical Exam Physical Exam: General: NAD, well-appearing elderly woman sitting upright in hospital bed, pleasant and cooperative, engaged in interview and exam HEENT: NC/AT, MMM, no tonsillar swelling/erythema, no conjunctival injection, no nasal discharge Neck: supple, FROM, no LAD Cardiac: normal S1 and S2, RRR, no M/R/G, brisk cap refill < 2 seconds Lungs: CTAB, no W/R/R, normal work of breathing Abdomen: normal BS, soft, NT/ND, no hepatosplenomegaly, no masses Extremities: 3+ pulses, no gross deformities, no cyanosis/edema Neuro: no focal deficits, appropriate muscle strength and tone Skin: no rashes/lesions, clean/dry/intact Results & Data Vital Signs (Past 12 Hours) Vital Signs Temp Pulse Pulse Resp BP Pulse Ox O2 Del Method 04/03/24 15:51 36.5 C 90 18 124/68 97 Room Air 04/03/24 15:35 97 H 04/03/24 11:43 36.8 C 58 L 18 141/96 H 98 Room Air 04/03/24 07:14 102 H 04/03/24 07:14 36.5 C 99 H 18 140/69 97 Room Air Coding Level of Care Code 61352 INT INP/OBS CARE 3/75MIN Diagnoses Angioedema T78.3XXA
[2024-04-03] MEDS: GABAPENTIN 300 MG CAP PO SCH (20:17)
[2024-04-03] MEDS: FEXOFENADINE HCL 180 MG TAB PO SCH (20:17)
[2024-04-03] MEDS: ROSUVASTATIN CALCIUM 20 MG TAB PO SCH (20:18)
[2024-04-03] MEDS ORDERED: PRAVASTATIN SOD 40 MG TAB PO SCH (21:00)
[2024-04-03] MEDS ORDERED: CETIRIZINE HCL 10 MG TABLET PO SCH (21:00)
--- NOTE | 2024-04-04 06:53 | Electrocardiogram Report ---
Test Reason : Blood Pressure : / mmHG Vent. Rate : 091 BPM Atrial Rate : 091 BPM P-R Int : 208 ms QRS Dur : 130 ms QT Int : 400 ms P-R-T Axes : 000 -33 112 degrees QTc Int : 492 ms Normal sinus rhythm Left axis deviation Right bundle branch block Left ventricular hypertrophy with repolarization abnormality ( R in aVL ) Abnormal ECG No previous ECGs available Confirmed by Khanh Mckeon ([id number]) on 04/04/2024 6:53:07 AM Referred By: REFERRED SELF Confirmed By:Khanh Mckeon
--- NOTE | 2024-04-04 06:56 | Electrocardiogram Report ---
Test Reason : Blood Pressure : / mmHG Vent. Rate : 103 BPM Atrial Rate : 103 BPM P-R Int : 200 ms QRS Dur : 142 ms QT Int : 400 ms P-R-T Axes : 045 -67 076 degrees QTc Int : 524 ms Sinus tachycardia Left axis deviation Left anterior fascicular block Cannot rule out Anterior infarct , age undetermined Abnormal ECG When compared with ECG of 02-APR-2024 23:34, (unconfirmed) Non-specific intra-ventricular conduction block has replaced Right bundle branch block Confirmed by Khanh Mckeon ([id number]) on 04/04/2024 6:56:30 AM Referred By: REFERRED SELF Confirmed By:Khanh Mckeon
--- NOTE | 2024-04-04 11:43 | Hospitalist Progress Note ---
Date of Service April 04, 2024 Assessment & Plan (1) Anaphylaxis: Plan: 88-year-old female with past medical history significant for hypertension, hyperlipidemia, nonobstructive CAD, diabetes, history of breast cancers s/p surgery and radiation, presents with allergic reaction with angioedema/anaphylaxis. Symptoms started 10 to 15 minutes after drinking strawberry Glucerna drink which she drank first time today. Initially started with itching of the eyes then's eyes were swollen and face was swollen and throat was swollen and was difficulty to talk and difficult to swallow and had some chest tightness and shortness of breath. She took Benadryl and came to the ER. She says she noticed some hives on the right upper extremity. In the ER patient was given racemic epinephrine and epinephrine, IV Benadryl, IV Solu- Medrol and IV Pepcid. Symptoms improved. But still has significant swelling in the throat. Currently no shortness of breath or chest pain. Hemodynamics are okay. Patient states this is first time she had a severe allergic reaction. Currently no headache or dizziness. Vision is okay. No runny nose. No cough. No fevers. No chest pain or shortness of breath currently. No nausea. No abdominal pain. Normal bowel and bladder movements. Ambulates okay. Resting comfortably. Anaphylaxis/angioedema After drinking strawberry Glucerna drink Patient is on telmisartan for long time and recently dose was reduced Will hold telmisartan for now Received epinephrine, Solu-Medrol, Pepcid, Benadryl and Zyrtec Will continue with IV Solu-Medrol, IV Pepcid, Zyrtec and IV Benadryl as needed Close monitor in telemetry Likely secondary to ARB Doubt it is caused by strawberry Glucerna drink Will stop ARB on discharge Appreciate allergy and immunology input and recommendation Specific tests as advised were sent She will be discharged home this afternoon History of nonobstructive CAD History of angina Continue aspirin, beta-saman, Imdur, Ranolazine and statin No acute cardiac symptoms Diabetes Hold glipizide Sliding scale Will monitor Hypertension Continue bisoprolol and Imdur Will hold telmisartan Will not restart telmisartan Hyperlipidemia Fenofibrate and statin Will monitor History of breast cancer S/p surgery and radiation Seems completed 10 years of tamoxifen. DVT prophylaxis SCDs for now Disposition Telemetry Full code. Likely discharge this afternoon Admission and Anticipated Discharge Date Admission Date: April 03, 2024 Subjective 04/03/2024 The patient was seen and examined in telemetry unit She was admitted with angioedema secondary to drinking strawberry Glucerna for the first time Denies any significant symptoms now Likely be discharged in the afternoon 04/04/2024 The patient was seen and examined in telemetry unit She has been feeling much better and denies any symptoms She will be discharged home this afternoon Review of Systems Review of Systems: All systems reviewed and are unremarkable except as noted below Physical Exam Physical Exam: Lying in bed without any acute distress Constitutional: well developed, well nourished and + obese; not ill appearing Eyes: PERRL, conjunctivae normal, anicteric sclerae ENMT: external ear and nose normal, oropharynx normal Neck: trachea midline, no thyromegaly Respiratory: no respiratory distress Auscultation: lungs clear to auscu ltation bilaterally Cardiovascular: Rate/Rhythm: regular rate, regular rhythm and + bradycardic Heart Sounds: normal S1 and normal S2; no murmur Gastrointestinal (Abdomen): Inspection/Auscultation: normal bowel sounds; abdomen not distended Percussion/Palpation: abdomen soft; abdomen nontender Musculoskeletal: No acute arthritis involving any of the joints Neurologic: normal touch/pain/proprioception and moves all extremities; no focal motor deficits Psychiatric: A+Ox3, euthymic affect Lymphatic: no cervical or axillary lymphadenopathy Results & Data Results & Data Vital Signs (Past 12 Hours) Vital Signs Temp Pulse Pulse Resp BP Pulse Ox O2 Del Method 04/04/24 11:03 36.9 C 79 17 127/70 97 Room Air 04/04/24 10:21 94 H 04/04/24 07:28 36.7 C 74 16 129/75 97 Room Air 04/04/24 02:27 36.6 C 86 18 106/63 97 Room Air Medications Administered Current Inpatient Medications Aspirin (Aspirin 81 Mg Ectab) 81 mg PO DAILY [facility] Stop: 05/03/24 08:59 Last Admin: 04/04/24 08:29 Dose: 81 mg Bisoprolol Fumarate (Bisoprolol Fumarate 5 Mg Tab) 5 mg PO QAM [facility] Stop: 05/03/24 08:59 Last Admin: 04/04/24 08:28 Dose: 5 mg Dextrose (Dextrose 50% 50 Ml Syringe) 25 - 50 ml IV UD PRN; Protocol PRN Reason: Hypoglycemia Protocol Stop: 05/03/24 02:09 Diphenhydramine HCl (Diphenhydramine 50 Mg/Ml Vial) 25 mg IV Q6H PRN PRN Reason: Allergic Reaction Stop: 05/03/24 02:09 Fenofibrate (Fenofibrate Nanocrystallized 145 Mg Tablet) 145 mg PO QAM [facility] Stop: 05/03/24 08:59 Last Admin: 04/04/24 08:29 Dose: 145 mg Fexofenadine HCl (Fexofenadine Hcl 180 Mg Tab) 180 mg PO BID [facility] Stop: 05/03/24 20:59 Last Admin: 04/04/24 08:29 Dose: 180 mg Gabapentin (Gabapentin 300 Mg Cap) 300 mg PO HS [facility] Stop: 05/03/24 20:59 Last Admin: 04/03/24 20:17 Dose: 300 mg Glucagon (Glucagon For Inj 1 Mg Vial) 1 mg SQ UD PRN; Protocol PRN Reason: Hypoglycemia Protocol Stop: 05/03/24 02:09 Glucose (Glucose 40% Gel 15 Gm Tube) 15 - 30 gm PO UD PRN; Protocol PRN Reason: Hypoglycemia Protocol Stop: 05/03/24 02:09 Glucose (Glucose 10 Tab/Tube) 4 - 8 tab PO UD PRN; Protocol PRN Reason: Hypoglycemia Treatment Stop: 05/03/24 02:09 Famotidine (Pepcid 20mg Iv Push) 20 mg in 5 mls @ 2.5 mls/min IV Q12H [facility] Stop: 05/03/24 08:59 Last Admin: 04/04/24 08:28 Dose: 2.5 mls/min Methylprednisolone 60 mg/ (Syringe) 0.96 mls @ 1.5 mls/min IV Q24H [facility] Stop: 05/03/24 08:59 Last Admin: 04/04/24 08:28 Dose: 1.5 mls/min Insulin Aspart (Insulin Aspart Per Unit Charge) 0 units SC ACHS [facility] Stop: 05/03/24 07:29 Last Admin: 04/04/24 08:37 Dose: 4 units Isosorbide Mononitrate (Isosorbide [place] Extended Rel 30 Mg Tabcr) 30 mg PO QAM [facility] Stop: 05/03/24 08:59 Last Admin: 04/04/24 08:28 Dose: 30 mg Magnesium Oxide (Magnesium Oxide 400 Mg Tab) 400 mg PO MoWeFr@0900 [facility] Stop: 05/03/24 08:59 Last Admin: 04/03/24 09:44 Dose: 400 mg Miscellaneous (Carbohydrates For Hypoglycemia ) 15 - 30 gm PO UD PRN PRN Reason: Hypoglycemia Protocol Stop: 05/03/24 02:09 Nitroglycerin (Nitroglycerin Sl 0.4 Mg/Tab Tab) 0.4 mg SL Q5M PRN PRN Reason: Chest Pain Stop: 05/03/24 02:09 Pantoprazole Sodium (Pantoprazole 40 Mg Tab) 40 mg PO QAM [facility] Stop: 05/03/24 08:59 Last Admin: 04/04/24 08:28 Dose: 40 mg Ranolazine (Ranolazine 500 Mg Er Tab) 500 mg PO BID [facility] Stop: 05/03/24 08:59 Last Admin: 04/04/24 08:29 Dose: 500 mg Rosuvastatin Calcium (Rosuvastatin Calcium 20 Mg Tab) 20 mg PO HS [facility] Stop: 05/03/24 20:59 Last Admin: 04/03/24 20:18 Dose: 20 mg (1) Anaphylaxis Encounter type: initial encounter Qualified Code(s): T78.2XXA - Anaphylactic shock, unspecified, initial encounter
--- NOTE | 2024-04-05 11:43 | Discharge Summary ---
Date of Service April 05, 2024 Admission HPI Per Admitting Provider 88-year-old female with past medical history significant for hypertension, hyperlipidemia, nonobstructive CAD, diabetes, history of breast cancers s/p surgery and radiation, presents with allergic reaction with angioedem a/anaphylaxis. Symptoms started 10 to 15 minutes after drinking strawberry Glucerna drink which she drank first time today. Initially started with itching of the eyes then's eyes were swollen and face was swollen and throat was swollen and was difficulty to talk and difficult to swallow and had some chest tightness and shortness of breath. She took Benadryl and came to the ER. She says she no ticed some hives on the right upper extremity. In the ER patient was given racemic epinephrine and epinephrine, IV Benadryl, IV Solu-Medrol and IV Pepcid. Symptoms improved. But still has significant swelling in the throat. Currently no shortness of breath or chest pain. Hemodynamics are okay. Patient states this is first time she had a severe allergic reaction. Currently no headache or dizziness. Vision is okay. No runny nose. No cough. No fevers. No chest pain or shortness of breath currently. No nausea. No abdominal pain. Normal bowel and bladder movements. Ambulates okay. Resting comfortably. Past medical history. As mentioned above Past surgical history. Appendectomy. Tonsillectomy. Cholecystectomy. Hysterectomy. Right hip replacement. Social history. Lives alone in apartment. No smoking. No alcohol use. Family history. Father had pacemaker. Colon cancer. Mother had glaucoma. Macular degeneration. Breast cancer. Admission Exam Per Admitting Provider Physical Exam: General- Not in acute distress Head- atraumatic Eyes- PERRL,mild swelling around eyes seen ENT- swollen throat Neck- supple, no JVD. Lungs- clear to auscultation no wheezing or crackles Heart- regular rhythm; tachycardia no murmur, no gallop. Abdomen- normal bowel sounds, soft, nontender, no distension. Extremities- mild pretibial edema present, no erythema seen. Neuro- alert, oriented PERRL, no facial palsy; no dysarthria; moves extremities. Principal Diagnosis Angioedema Discharge Exam Lying in bed without any acute distress Constitutional well developed, well nourished and + obese; not ill appearing Eyes PERRL, conjunctivae normal, anicteric sclerae ENMT external ear and nose normal, oropharynx normal Neck trachea midline, no thyromegaly Respiratory no respiratory distress Auscultation: lungs clear to auscultation bilaterally Cardiovascular Rate/Rhythm: regular rate, regular rhythm and + bradycardic Heart Sounds: normal S1 and normal S2; no murmur Gastrointestinal (Abdomen) Inspection/Auscultation: normal bowel sounds; abdomen not distended Percussion/Palpation: abdomen soft; abdomen nontender Neurologic normal touch/pain/proprioception and moves all extremities; no focal motor deficits Psychiatric A+Ox3, euthymic affect Lymphatic no cervical or axillary lymphadenopathy Discharge Data Allergies Allergy/AdvReac Type Severity Reaction Status Date / Time No Known Allergies Allergy Verified 04/03/24 00:43 Consultations 04/03/24 00:26 ED Decision to Admit Stat 04/03/24 08:00 Consult Allergy / Immunology Routine Hospital Course (1) Anaphylaxis: 88-year-old female with past medical history significant for hypertension, hyperlipidemia, nonobstructive CAD, diabetes, history of breast cancers s/p surgery and radiation, presents with allergic reaction with angioed delbert/anaphylaxis. Symptoms started 10 to 15 minutes after drinking strawberry Glucerna drink which she drank first time today. Initially started with itching of the eyes then's eyes were swollen and face was swollen and throat was swollen and was difficulty to talk and difficult to swallow and had some chest tightness and shortness of breath. She took Benadryl and came to the ER. She says she noticed some hives on the right upper extremity. In the ER patient was given racemic epinephrine and epinephrine, IV Benadryl, IV Solu-Medrol and IV Pepcid. Symptoms improved. But still has significant swelling in the throat. Currently no shortness of breath or chest pain. Hemodynamics are okay. Patient states this is first time she had a severe allergic reaction. Currently no headache or dizziness. Vision is okay. No runny nose. No cough. No fevers. No chest pain or shortness of breath currently. No nausea. No abdominal pain. Normal bowel and bladder movements. Ambulates okay. Resting comfortably. Anaphylaxis/angioedema After drinking strawberry Glucerna drink Patient is on telmisartan for long time and recently dose was reduced Will hold telmisartan for now Received epinephrine, Solu-Medrol, Pepcid, Benadryl and Zyrtec Will continue with IV Solu-Medrol, IV Pepcid, Zyrtec and IV Benadryl as needed Close monitor in telemetry Likely secondary to ARB Doubt it is caused by strawberry Glucerna drink Will stop ARB on discharge Appreciate allergy and immunology input and recommendation Specific tests as advised were sent She will be discharged home this afternoon History of nonobstructive CAD History of angina Continue aspirin, beta-saman, Imdur, Ranolazine and statin No acute cardiac symptoms Diabetes Hold glipizide Sliding scale Will monitor Hypertension Continue bisoprolol and Imdur Will hold telmisartan Will not restart telmisartan Hyperlipidemia Fenofibrate and statin Will monitor History of breast cancer S/p surgery and radiation Seems completed 10 years of tamoxifen. DVT prophylaxis SCDs for now Disposition Telemetry Full code. Likely discharge this afternoon Total Time Total Time Spent Total Time Spent (In Minutes): 35 minutes Discharge Plan Discharge Items Patient Disposition: Home - Self-Care Reason For Visit: ANGIOEDMA, ANAPHYLAXSIS Discharge Diagnosis: Angioedema Condition on Discharge: Fair Activity: Resume your previous activity Non-emergency contact: Primary Care Provider Call non-emergency contact if: you have any medication questions and your symptoms worsen Follow-up/Referrals: Deshaun Castro MD [Physician] - 04/18/24 10:20 am Licha Nunez [Primary Care Provider] - 04/11/24 2:00 pm Diet: Regular Addtl Attending Provider Instructions: Please take precautions to avoid falls Your telmisartan has been discontinued Avoid strawberry Glucerna Check Dayana 180 mg twice daily as advised for 2 weeks Will give small dose of steroid as a tapering dose Please keep appointments with your healthcare providers Pending Studies at Discharge: Yes Studies:: Specific tests for allergies including tryptase level, C4, C1 esterase inhibitor, C1 esterase inhibitor function, C1q level and also [facility] aeroallergen serum IgE panel Stand-Alone Forms: My [facility] [employer], Smoking Cessation Medications and DC Order Prescriptions: New fexofenadine [Allergy Relief (fexofenadine)] 180 mg Tablet 180 mg PO BID Qty: 30 0RF prednisone 10 mg tablet 10 mg PO DIRECTED Qty: 10 0RF Rx Instructions: 4 PO tomorrow,3 PO the next day,2 Po next and 1 po next day to finish Continued Sandovalre Qasimica Ointment 1 applic topical DIRECTED PRN (Reason: APPLY TO NECK NEEDED) isosorbide mononitrate 30 mg tablet extended release 24 hr 30 mg PO QAM glipizide 5 mg tablet extended release 24hr 5 mg PO QAM aspirin 81 mg Tablet,Delayed Release (Dr/Ec) 81 mg PO DAILY bisoprolol fumarate 5 mg tablet 5 mg PO QAM Premarin 0.625 mg/gram cream 0.625 mg vaginal DIRECTED Rx Instructions: ON EXT MED HX, NOT ON [facility] MED LIST gabapentin 300 mg capsule 300 mg PO HS zinc gluconate 50 mg Tablet 50 mg PO 3XWK Rx Instructions: MON, WED, FRI dicyclomine 10 mg capsule 10 mg PO BID PRN (Reason: ABD CRAMPS) cranberry 500 mg Capsule 500 mg PO 3XWK Rx Instructions: MON, WED, FRI administer with meals esomeprazole magnesium 20 mg capsule,delayed release(DR/EC) 20 mg PO QAM Multivitamin 50 Plus Tablet 1 tab PO 3XWK Rx Instructions: MON, WED, FRI rosuvastatin 20 mg tablet 20 mg PO HS Rx Instructions: WILL START SOON FINISHED WITH PRAVASTATIN ranolazine 500 mg tablet extended release 12 hr 500 mg PO BID Rx Instructions: ON EXT MED HX, NOT ON [facility] MED LIST fenofibrate nanocrystallized 145 mg tablet 145 mg PO QAM Rx Instructions: ON EXT MED HX, NOT ON [facility] MED LIST calcium carbonate-vitamin D3 [Calcium 600 + D(3)] 600 mg-10 mcg (400 unit) Tablet 1 tab PO DAILY magnesium oxide 400 mg magnesium Tablet 400 mg PO 3XWK Rx Instructions: MON, WED, FRI Discontinued telmisartan 40 mg tablet 20 mg PO QAM Rx Instructions: JUST CHANGED DOSE RECENTLY Discharge Orders: Discharge Order (Routine); Ordered 04/04/24 Ordered By: Gustavo Black/Other Patient Handouts: Managing Type 2 Diabetes, First Aid: Allergic Reactions, ED Angioedema Admission Data Admit Date/Time: 04/03/24 01:26 Attending Provider: Gustavo Rodrigues Admit Provider: Speedy Spain Primary Care Provider: Licha Nunez Other Providers: Speedy Spain; Hailee Curry Other Interventions: Discharge Summary Assessment (RN) Last Done: 04/04/24 13:02
[2024-04-08 07:32] LABS: C1 Esterase Inhib Functional 94 % (>=68)
[2024-04-11 18:03] LABS: Alternaria Class 0; Alternaria IgE <0.10 kU/L; Ash (White) Class 0/1; Asperg Fumig Class 0; Asperg Fumig IgE <0.10 kU/L; Bermuda Grass Class 0; Bermuda Grass IgE <0.10 kU/L; Birch Class 3; Birch IgE 4.41 kU/L; C1 Esterase Inhibitor 29 mg/dL (21-39); Cat Dander Class 0; Cat Dander IgE <0.10 kU/L; Cladosporium IgE <0.10 kU/L; Cladosporium her Class 0; Cockroach Allergen Class 0; Cockroach IgE Ab <0.10 kU/L; Complement C1q 6.4 mg/dL (5.0-8.6); Cottonwood Class 0; Cottonwood IgE <0.10 kU/L; D. farinae Class 0; D. farinae IgE <0.10 kU/L; D. pteronyssinus Class 0; D. pteronyssinus IgE <0.10 kU/L; Dog Dander Class 0/1; Elm Class 0; Elm IgE <0.10 kU/L; Immunoglobulin IgE 28 kU/L (<OR=114); Maple (Box Elder) IgE <0.10 kU/L; Maple Class 0; Mountain Cedar Class 0; Mountain Cedar IgE <0.10 kU/L; Mouse Urine Protein Class 0; Mouse Urine Protein IgE <0.10 kU/L; Mugwort (W6) IgE <0.10 kU/L; Mugwort Class 0; Oak-White Class 2; Oak-White IgE 2.58 kU/L; Penic Notatum Class 0; Penic Notatum IgE <0.10 kU/L; Rough Pigweed Class 0; Rough Pigweed IgE <0.10 kU/L; Sheep Sorrel Class 0/1; Sheep Sorrel IgE 0.11 kU/L; Short Ragweed Class 1; Short Ragweed IgE 0.57 kU/L; Sycamore Class 0; Sycamore IgE <0.10 kU/L; Timothy Class 0; Timothy IgE <0.10 kU/L; Walnut Tree Class 0/1; Walnut Tree IgE 0.16 kU/L; White Mulberry Class 0; White Mulberry IgE <0.10 kU/L
== END 2024-04-04 13:51 | disposition home or self-care (01) | DRG 916 ==
LOC: ED 23:13 → 4W 04-03 01:26 → INTOOBSV 04-03 01:26 → 4W 04-03 01:35